=== PATIENT | female | born 1975 | race Caucasian/White ===

== ENCOUNTER 2020-05-19 08:50 | Day surgery (SDC) | payer BC, OTHER ==
[~2020-05-19] VITALS: Ht 157.5 cm; Wt 78.9 kg
[~2020-05-19 08:50] MED LIST: CETI-36 PO; FLON1SPR NARES; LIDOCAINE 1% MDV 20ML VIAL SQ PRN; LIDOCAINE 2% 100MG/5ML SDV (FOR ANES.) As Ordered ONE; LR 1,000 ML IV ONE; MIDAZOLAM INJ 2MG/2ML VIAL (J2250 PER 1MG) As Ordered ONE; ONDANSETRON 4MG/2ML VIAL As Ordered ONE; ZOLO50TA PO; dexameTHASONE 4 MG/ML 1ML VIAL (J1100 PER 1MG) As Ordered ONE; fentaNYL 250 MCG/5 ML INJECTION (J3010) As Ordered ONE; propofoL 200 MG/20 ML VIAL As Ordered ONE
[2020-05-19] MEDS ORDERED: ROCURONIUM BROMIDE 50 MG/5 ML VIAL As Ordered ONE (09:19)
[2020-05-19] MEDS ORDERED: BUPIVACAINE HCL 0.5% 30 ML VIAL As Ordered ONE (09:25)
[2020-05-19] MEDS ORDERED: dexameTHASONE 4 MG/ML 1ML VIAL (J1100 PER 1MG) As Ordered ONE (09:25)
[2020-05-19] MEDS ORDERED: LIDOCAINE 2% MDV 20ML VIAL As Ordered ONE (09:25)
[2020-05-19] MEDS ORDERED: NEOSPORIN GU IRRIG 20 ML VIAL As Ordered ONE (09:26)
[2020-05-19] MEDS ORDERED: BACITRACIN PWD 50,000 UNITS VIAL As Ordered ONE (09:26)
[2020-05-19] MEDS ORDERED: VANCOMYCIN 1000MG/20ML VIAL As Ordered ONE (09:50)
[2020-05-19] MEDS ORDERED: VANCOMYCIN HCL 1,000 MG, VIAL MATE ADAPTER 1 EACH in NS 250 ML IV ONE (09:55)
[2020-05-19] MEDS ORDERED: SUGAMMADEX SODIUM 500 MG/5 ML VIAL (BRIDION) As Ordered ONE (11:01)
[2020-05-19] MEDS ORDERED: KETOROLAC 60MG 2ML VIAL As Ordered ONE (11:01)
[2020-05-19] MEDS ORDERED: ACETAMINOPHEN 1000MG 100ML IV BTL (OFIRMEV) (J0131 PER 10MG) As Ordered ONE (11:01)
[2020-05-19] MEDS ORDERED: HYDROmorphone HCL 2 MG/ML 1ML VIAL (J1170) As Ordered ONE (12:17)
[2020-05-19] MEDS ORDERED: ONDANSETRON 4MG/2ML VIAL IV PRN (14:05)
[2020-05-19] MEDS ORDERED: LR 1,000 ML IV SCH (14:05)
[2020-05-19] MEDS ORDERED: fentaNYL 100 MCG/2 ML INJECTION (J3010) As Ordered ONE (14:21)
[2020-05-19] MEDS: fentaNYL 100 MCG/2 ML INJECTION (J3010) IV PRN ×2 (14:23→14:40)
[2020-05-19] MEDS ORDERED: oxyCODONE 5MG TAB PO PRN (14:35)
--- NOTE | 2020-05-19 16:09 | REP ---
INDICATION: POST OP. COMPARISON: None. TECHNIQUE: Four views obtained through overlying splint material. FINDINGS: Four views of the right foot demonstrate metallic screw plate fixation of posterior calcaneal osteotomy. There is a plantar heel spur. There is some spurring at the talonavicular articulation with 2 accessory ossicles visible dorsally at that articulation on lateral radiograph. Overall mineralization pattern is normal. There is a surgical drain adjacent to the lateral aspect of the calcaneus.. . . IMPRESSION: Status post calcaneal osteotomy with screw plate fixation.. <Electronically signed by Luis Gonzalez > 05/19/20 [id number]
[2020-05-19 16:35] VITALS: BP 118/72
--- NOTE | 2020-05-19 20:33 | RO ---
OPERATIVE NOTE DATE OF OPERATION: 05/19/2020 PREOPERATIVE DIAGNOSIS: Posterior tibial tendon dysfunction, right foot. POSTOPERATIVE DIAGNOSIS: Posterior tibial tendon dysfunction, right foot. PROCEDURE: 1. Debridement, posterior tibial tendon, right foot. 2. Flexor digitorum longus tendon transfer to the navicular, right foot. 3. Medial calcaneal slide osteotomy with plate fixation, right foot. SURGEON: MELANY Trejo ASSISTANT: None. ANESTHESIA: General anesthesia. IRRIGATION: Dilute bacitracin, neomycin and polymyxin B solution. ESTIMATED BLOOD LOSS: 10 mL HEMOSTASIS: Thigh pneumatic tourniquet at 300 mmHg, the first inflation 91 minutes, rest time 34 minutes, second inflation 51 minutes. HARDWARE UTILIZED: Arthrex 10 mm medial calcaneal slide plate with screw fixation 3.5 mm x 26 mm x2 and a 3.5 x 28 mm x2. Interference screw utilized was a 5.5 x 15 mm bioabsorbable screw. DESCRIPTION OF OPERATION: On 05/19/2020, this 44-year-old white female was taken from her hospital room to the operating room and placed on the operating table in supine position. Following the induction of general anesthesia, the following procedure was performed. Debridement of posterior tibial tendon, right foot. Attention was directed to the patient's right foot where an incision was made from just proximal to the medial malleolus extending down to the navicular and then plantarly to the plantar surface of the foot, creating an S-shaped incision. The incision was deepened through subcutaneous tissues and all crossing venous tributaries were identified and scored, clamped, cut, ligated and electrocoagulated as necessary. Dissection was carried down to the level of the tendon sheath of the posterior tibial tendon where the tendon sheath was opened and the tendon proximally was noted to be normal in appearance. However, approximately 2 cm proximal to its insertion point, there was noted to be a linear tear with retraction of the tendon and significant fibrosis of the tendon. This area was attempted to be debrided. However, the tendon was nonfunctional in appearance a firm. Therefore, it was elected to debride the tendon and then perform a weave with flexor digitorum longus tendon transfer for augmentation. Therefore, the following procedure was performed. Flexor digitorum longus tendon transfer to the navicular with insertion with a 5.5 x 15 mm interference screw. The tendon sheath was then entered for the flexor digitorum longus tendon and then freed in a proximal and plantar direction. The venous complex on the plantar surface of the foot was sutured and electrocoagulated as needed. The area at the harvest site of the flexor digitorum longus tendon was then transected and this area was then packed with Gelfoam. The tendon was then measured to the navicular. Approximately 3 mm of tendon had to be debrided from the flexor digitorum longus tendon for physiologic tension to be placed at the socket site. The socket was then created utilizing a 5.5 mm drill bit which was drilled approximately 18 mm in depth utilizing a #2 FiberWire, a SpeedWhip suture was placed into the flexor digitorum longus tendon and utilizing the normal the normal technique, the tendon was placed into the socket and a 5.5 x 15 mm interference screw was then drilled into place. This provided firm fixation of the flexor digitorum longus tendon. The tourniquet was then released. All bleeders as encountered were electrocoagulated and closure was obtained. The tendon sheath was then closed with 4-0 Monocryl in a simple interrupted type fashion. The subcutaneous tissues were coapted and maintained with 4-0 Monocryl in simple interrupted type fashion. The skin incision was then coapted and maintained utilizing 3-0 nylon in a simple interrupted type fashion. The patient was then repositioned onto the lateral decubitus position. After 34 minutes, the tourniquet was reinflated and a 5 cm incision was placed over the lateral wall of the calcaneus directly paralleling the peroneal tendons. The incision was then deepened through the periosteum. C-arm images were obtained to appropriately place the osteotomy site. Utilizing a sagittal saw, an osteotomy was then performed through the calcaneus, taking care on the medial cortex. This was then freed with an osteotome. Since the patient's calcaneal inclination angle was quite low as the osteotomy was displaced 10 mm, it was also plantarflexed approximately 3-4 mm to increase the calcaneal inclination angle and a temporary fixation was utilized with a Shaquille wire from the posterior aspect of the calcaneus into the body of the calcaneus and the 10 mm plate was applied to the lateral surface of the calcaneus. C-arm imagery was utilized for appropriate placement. The osteotomy upon completion was noted to be stable in all three cardinal planes. The wound was flushed with copious amounts of dilute bacitracin, neomycin and polymyxin B solution. The deep structures were then coapted and maintained utilizing 3-0 Monocryl in a simple interrupted type fashion. The subcutaneous tissues were coapted and maintained utilizing 4-0 Monocryl in a simple interrupted type fashion. The skin incision was coapted and maintained utilizing 3-0 nylon in a simple interrupted type fashion. Sterile dressing was applied consisting of Adaptic, 4x4s, 4x4 splints and Kerlix. The thigh tourniquet was released. Capillary filling time was noted to be immediate. A Kebede compressive dressing with a posterior splint was then applied. The patient apparently tolerated the surgical procedure well and was taken from the OR to the recovery room for further monitoring by the anesthesia department. Postoperative instructions were given upon discharge.
== END 2020-05-19 16:35 | disposition home or self-care (01) ==
LOC: M SDC 08:50 → EDBD 09:45 → M SDC 16:35
PROVIDERS: ATTEND Podiatrist
DX: M66.361 Spontaneous rupture of flexor tendons, right lower leg (principal); M79.671 Pain in right foot; M76.821 Posterior tibial tendinitis, right leg; F41.9 Anxiety disorder, unspecified; F32.9 Major depressive disorder, single episode, unspecified; Z79.01 Long term (current) use of anticoagulants; Z79.899 Other long term (current) drug therapy; Z88.0 Allergy status to penicillin
CPT/HCPCS: 27691; 28300; 73630; 88304; C1713; J0131; J1100; J1170; J1885; J2250; J2405; J3010; J3370